=== PATIENT | female | born 2000 | race African-American/Black ===

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

== ENCOUNTER 2019-05-17 23:36 | Emergency (ER) | payer OTHER ==
[~2019-05-17] VITALS: Ht 160 cm; Wt 104.3 kg
[~2019-05-17 23:36] MED LIST changes: +COLACE100 MG PO; +IBUPROFEN 400400 M2 PO
[2019-05-18 00:18] LABS: ABSOLUTE NEUTROPHILS 2.2 thou/uL (1.4-8.2); BASOPHILS 1.2 % (0.0-2.0); HEMATOCRIT 42.2 % (37.0-47.0); HEMOGLOBIN 13.3 gm/dL (12.0-15.0); LYMPHOCYTES 45.7 % (24.0-44.0); MCH 24.4 pg (26.0-34.0); MCHC 31.4 g/dL (28.0-37.0); MCV 77.6 fL (80.0-100.0); MONOCYTES 7.7 % (1.0-8.0); PLATELET COUNT 222 thou/uL (150-400); POLYS 40.4 % (36.0-66.0); RBC 5.44 mil/uL (4.20-5.00); RDW 13.9 % (10.5-14.5); WBC 5.4 thou/uL (4.0-11.0)
[2019-05-18 00:26] LABS: ANION GAP 6 mmol/L (7-16); BUN 9 mg/dL (7-18); CALCIUM 8.4 mg/dL (8.5-10.1); CHLORIDE 105 mmol/L (98-107); CO2 29 mmol/L (21-32); CREATININE 0.7 mg/dL (0.6-1.0); GLUCOSE 86 mg/dL (74-106); POTASSIUM 3.5 mmol/L (3.5-5.1); SODIUM 140 mmol/L (136-145)
[2019-05-18 00:32] LABS: ALBUMIN 3.4 g/dL (3.4-5.0); DIRECT BILIRUBIN < 0.1 mg/dL (<0.1-0.2); LIPASE 47 U/L (73-393); SGOT 17 U/L (15-37); SGPT 20 U/L (30-65); TOTAL BILIRUBIN 0.3 mg/dL (<0.1-1.0); TOTAL PROTEIN 7.3 g/dL (6.4-8.2)
[2019-05-18 00:46] LABS: URINE BILIRUBIN NEGATIVE (Negative); URINE BLOOD NEGATIVE (Negative); URINE CLARITY SL CLOUDY; URINE COLOR YELLOW; URINE GLUCOSE-RANDOM* NEGATIVE (Negative); URINE KETONES NEGATIVE (Negative); URINE NITRITE-REFLEX NEGATIVE (Negative); URINE PROTEIN (DIPSTICK) NEGATIVE (Negative); URINE SPECIFIC GRAVITY 1.025 (1.005-1.035); URINE UROBILINOGEN 0.2 E.U./dl (0.2-1.0)
[2019-05-18 01:12] LABS: URINE LEUKOCYTES-REFLEX 2+ (Negative)
[2019-05-18 01:27] LABS: CASTS None Seen /LPF (None Seen); CRYSTALS None Seen /LPF (None Seen); MUCUS 4-6 Moderate strn/LPF (None Seen); SQUAMOUS 4-10 Moderate /LPF (0-3); URINE RBC 0-2 Rare /HPF (0-2); URINE WBC-REFLEX 6-15 Few /HPF (0-5)
[2019-05-18] MEDS ORDERED: ZOFRAN ODT4 MG PO (02:44)
[2019-05-18] MEDS ORDERED: CEFDINIR300 MG PO (02:44)
[2019-05-18 02:46] VITALS: BP 109/63
== END 2019-05-18 02:59 | disposition home or self-care (01) ==
LOC: ER 23:36
PROVIDERS: Emergency Medicine
DX: J06.9 Acute upper respiratory infection, unspecified (principal); R11.2 Nausea with vomiting, unspecified; R19.7 Diarrhea, unspecified

== ENCOUNTER 2020-07-15 09:02 | Emergency (ER) | payer OTHER ==
[~2020-07-15] VITALS: Ht 160 cm; Wt 80.7 kg
[~2020-07-15 09:02] MED LIST changes: +CEFDINIR300 MG PO; +ZOFRAN ODT4 MG PO
[2020-07-15] MEDS ORDERED: NOHOMEMEDICATIONS (09:39)
[2020-07-15 09:44] LABS: URINE BILIRUBIN NEGATIVE (Negative); URINE BLOOD NEGATIVE (Negative); URINE CLARITY CLEAR; URINE COLOR YELLOW; URINE GLUCOSE-RANDOM* NEGATIVE (Negative); URINE KETONES NEGATIVE (Negative); URINE NITRITE-REFLEX NEGATIVE (Negative); URINE PROTEIN (DIPSTICK) TRACE (Negative); URINE UROBILINOGEN 0.2 E.U./dl (0.2-1.0)
[2020-07-15 09:45] LABS: ABSOLUTE NEUTROPHILS 2.3 thou/uL (1.4-8.2); BASOPHILS 0.4 % (0.0-2.0); EOSINOPHILS 4.5 % (0.0-3.0); HEMATOCRIT 46.3 % (37.0-47.0); LYMPHOCYTES 52.4 % (24.0-44.0); MCHC 32.5 g/dL (28.0-37.0); MCV 80.1 fL (80.0-100.0); PLATELET COUNT 246 thou/uL (150-400); POLYS 37.7 % (36.0-66.0); RBC 5.78 mil/uL (4.20-5.00); RDW 13.4 % (10.5-14.5)
[2020-07-15 09:46] LABS: URINE LEUKOCYTES-REFLEX 2+ (Negative)
[2020-07-15 09:56] LABS: CALCIUM 9.3 mg/dL (8.5-10.1); CREATININE 0.8 mg/dL (0.6-1.0); POTASSIUM 3.6 mmol/L (3.5-5.1)
[2020-07-15 10:01] LABS: ALBUMIN 4.1 g/dL (3.4-5.0); TOTAL BILIRUBIN 0.7 mg/dL (0.2-1.0); TOTAL PROTEIN 8.5 g/dL (6.4-8.2)
[2020-07-15 10:08] LABS: BACTERIA-REFLEX 1-9 Few /HPF (None Seen); CASTS None Seen /LPF (None Seen); CRYSTALS None Seen /LPF (None Seen); MUCUS 0-3 Light strn/LPF (None Seen); SQUAMOUS 0-3 Few /LPF (0-3); URINE RBC None Seen /HPF (NONE SEEN); URINE WBC-REFLEX 0-5 Rare /HPF (0-5)
[2020-07-15 11:10] VITALS: BP 104/55
== END 2020-07-15 11:11 | disposition home or self-care (01) ==
LOC: ER 09:02
PROVIDERS: Emergency Medicine
DX: R11.2 Nausea with vomiting, unspecified (principal); Z20.822 Contact with and (suspected) exposure to COVID-19; R51.9 Headache, unspecified; R10.31 Right lower quadrant pain; J45.909 Unspecified asthma, uncomplicated; Z87.42 Personal history of other diseases of the female genital tract; Z91.041 Radiographic dye allergy status

== ENCOUNTER 2020-08-27 15:48 | Emergency (ER) | payer OTHER ==
[~2020-08-27] VITALS: Ht 160 cm; Wt 78.5 kg
[~2020-08-27 15:48] MED LIST changes: +NOHOMEMEDICATIONS
[2020-08-27] MEDS ORDERED: ZOLOFT 50 MG TA50 MG PO (16:05)
[2020-08-27 16:14] LABS: URINE BILIRUBIN 1+ (Negative); URINE BLOOD NEGATIVE (Negative); URINE CLARITY CLEAR; URINE COLOR YELLOW; URINE GLUCOSE-RANDOM* NEGATIVE (Negative); URINE KETONES 3+ (Negative); URINE NITRITE-REFLEX NEGATIVE (Negative); URINE PROTEIN (DIPSTICK) TRACE (Negative); URINE SPECIFIC GRAVITY >= 1.030 (1.005-1.035); URINE UROBILINOGEN 0.2 E.U./dl (0.2-1.0)
[2020-08-27 16:16] LABS: ICTOTEST (BILI CONFIRMATORY) Positive (Negative); URINE LEUKOCYTES-REFLEX 1+ (Negative)
[2020-08-27 16:17] LABS: ABSOLUTE NEUTROPHILS 2.7 thou/uL (1.4-8.2); BASOPHILS 0.8 % (0.0-2.0); EOSINOPHILS 2.2 % (0.0-3.0); HEMATOCRIT 44.7 % (37.0-47.0); HEMOGLOBIN 14.9 gm/dL (12.0-15.0); LYMPHOCYTES 43.9 % (24.0-44.0); MCH 26.2 pg (26.0-34.0); MCHC 33.2 g/dL (28.0-37.0); MCV 78.7 fL (80.0-100.0); MONOCYTES 4.5 % (1.0-8.0); PLATELET COUNT 191 thou/uL (150-400); POLYS 48.6 % (36.0-66.0); RBC 5.68 mil/uL (4.20-5.00); RDW 12.9 % (10.5-14.5); WBC 5.6 thou/uL (4.0-11.0)
[2020-08-27 16:22] LABS: MUCUS >6 Heavy strn/LPF (None Seen)
[2020-08-27 16:23] LABS: CASTS None Seen /LPF (None Seen); CRYSTALS None Seen /LPF (None Seen); SQUAMOUS 4-10 Moderate /LPF (0-3); URINE RBC None Seen /HPF (NONE SEEN); URINE WBC-REFLEX 6-15 Few /HPF (0-5)
[2020-08-27 16:30] LABS: CALCIUM 9.2 mg/dL (8.5-10.1); CREATININE 0.7 mg/dL (0.6-1.0); POTASSIUM 3.8 mmol/L (3.5-5.1)
[2020-08-27 16:32] LABS: ALBUMIN 4.2 g/dL (3.4-5.0); TOTAL BILIRUBIN 1.3 mg/dL (0.2-1.0); TOTAL PROTEIN 8.5 g/dL (6.4-8.2)
[2020-08-27] MEDS ORDERED: ZOFRAN ODT4 MG PO (16:52)
[2020-08-27 17:35] VITALS: BP 131/74
== END 2020-08-27 17:36 | disposition home or self-care (01) ==
LOC: ER 15:48
PROVIDERS: Emergency Medicine Emergency Medical Services
DX: R11.2 Nausea with vomiting, unspecified (principal); R19.7 Diarrhea, unspecified; R53.1 Weakness; J45.909 Unspecified asthma, uncomplicated; Z91.041 Radiographic dye allergy status

== ENCOUNTER 2020-09-10 02:24 | Emergency (ER) | payer OTHER ==
[~2020-09-10] VITALS: Ht 160 cm; Wt 73.9 kg
[~2020-09-10 02:24] MED LIST changes: +ZOLOFT 50 MG TA50 MG PO
[2020-09-10 03:33] VITALS: BP 132/68
--- NOTE | 2020-09-10 10:59 | EKG ---
[place] [address] [facility] [place] [address] ELECTROCARDIOGRAM REPORT Name: ZACK SPEAR [facility] [id number] Admission: 09/10/20 Attend Phys: Discharge: 09/10/20 Date of : 89 Report #: [id number] [facility] ED Test Date: 2020-09-10 Test Time: 02:42:47 Pat Name: ZACK SPEAR Department: Room: Gender: F Exchange Teller: mary manzano : 2000 Requested By: Oniel Montenegro Order Number: [id number] MD: Ivan Hernandez Measurements Intervals [place] Rate: 73 P: 32 AK: 150 QRS: 52 QRSD: 79 T: 30 QT: 370 QTc: 408 Interpretive Statements Sinus rhythm No previous ECG available for comparison Electronically Signed On 09-10-2020 10:59:04 CDT by Ivan Hernandez [email or web address] <ELECTRONICALLY SIGNED> By: Iavn Hernanedz MD 09/10/20 1059 1 1 Ivan Hernandez MD /EPI
== END 2020-09-10 03:36 | disposition home or self-care (01) ==
LOC: ER 02:24
DX: R07.89 Other chest pain (principal); J45.909 Unspecified asthma, uncomplicated; Z79.899 Other long term (current) drug therapy; Z91.041 Radiographic dye allergy status

== ENCOUNTER 2020-10-19 16:45 | Emergency (ER) | payer OTHER ==
[~2020-10-19] VITALS: Ht 160 cm; Wt 78.5 kg
[2020-10-19 16:47] VITALS: BP 108/61
[2020-10-19] MEDS ORDERED: COLACE100 MG PO (17:14)
[2020-10-19] MEDS ORDERED: PROCTOFOAM-HC 110 GM RECTAL (17:14)
== END 2020-10-19 17:20 | disposition home or self-care (01) ==
LOC: ER 16:45
DX: K64.5 Perianal venous thrombosis (principal); J45.909 Unspecified asthma, uncomplicated; F32.9 Major depressive disorder, single episode, unspecified; F12.90 Cannabis use, unspecified, uncomplicated; Z79.899 Other long term (current) drug therapy; Z91.041 Radiographic dye allergy status

== ENCOUNTER 2020-11-17 09:45 | Emergency (ER) | payer OTHER ==
[~2020-11-17] VITALS: Ht 160 cm; Wt 78.5 kg
[~2020-11-17 09:45] MED LIST changes: +PROCTOFOAM-HC 110 GM RECTAL
[2020-11-17] MEDS ORDERED: CEPHALEXIN500 MG PO (11:41)
[2020-11-17 11:53] VITALS: BP 117/62
== END 2020-11-17 11:53 | disposition home or self-care (01) ==
LOC: ER 09:45
DX: N61.0 Mastitis without abscess (principal); J45.909 Unspecified asthma, uncomplicated; Z88.8 Allergy status to other drugs, medicaments and biological substances

== ENCOUNTER 2020-11-28 20:51 | Emergency (ER) | payer OTHER ==
[~2020-11-28] VITALS: Ht 160 cm; Wt 73.9 kg
[~2020-11-28 20:51] MED LIST changes: +CEPHALEXIN500 MG PO
[2020-11-28] MEDS ORDERED: CEPHALEXIN500 MG PO (21:16)
[2020-11-28] MEDS ORDERED: PROTOPIC OINTME30 GM TOP (21:28)
[2020-11-28 21:51] VITALS: BP 108/63
== END 2020-11-28 21:52 | disposition home or self-care (01) ==
LOC: ER 20:51
DX: L30.9 Dermatitis, unspecified (principal); J45.909 Unspecified asthma, uncomplicated; F32.9 Major depressive disorder, single episode, unspecified; Z79.899 Other long term (current) drug therapy; Z91.041 Radiographic dye allergy status

== ENCOUNTER 2021-01-17 15:43 | Emergency (ER) | payer OTHER ==
[~2021-01-17] VITALS: Ht 160 cm; Wt 69.4 kg
[~2021-01-17 15:43] MED LIST changes: +PROTOPIC OINTME30 GM TOP
[2021-01-17] MEDS ORDERED: ERYTHROMYCIN E3.5 G2 OPHTHALMIC ×2 (16:22→17:15)
[2021-01-17] MEDS ORDERED: TYLENOL 8 HOUR650 MG PO ×2 (16:22→17:15)
[2021-01-17 17:18] VITALS: BP 114/68
== END 2021-01-17 17:18 | disposition home or self-care (01) ==
LOC: ER 15:43
DX: H00.012 Hordeolum externum right lower eyelid (principal); J45.909 Unspecified asthma, uncomplicated; F32.9 Major depressive disorder, single episode, unspecified; F41.9 Anxiety disorder, unspecified; F12.90 Cannabis use, unspecified, uncomplicated; Z91.041 Radiographic dye allergy status

== ENCOUNTER 2021-04-21 07:29 | Emergency (ER) | payer OTHER ==
[~2021-04-21] VITALS: Ht 160 cm; Wt 73.9 kg
[~2021-04-21 07:29] MED LIST changes: +ERYTHROMYCIN E3.5 G2 OPHTHALMIC; +TYLENOL 8 HOUR650 MG PO
[2021-04-21 07:48] LABS: URINE BILIRUBIN NEGATIVE (Negative); URINE BLOOD NEGATIVE (Negative); URINE CLARITY CLEAR; URINE COLOR YELLOW; URINE GLUCOSE-RANDOM* NEGATIVE (Negative); URINE KETONES NEGATIVE (Negative); URINE LEUKOCYTES-REFLEX 1+ (Negative); URINE NITRITE-REFLEX NEGATIVE (Negative); URINE PROTEIN (DIPSTICK) NEGATIVE (Negative); URINE SPECIFIC GRAVITY >= 1.030 (1.005-1.035); URINE UROBILINOGEN 0.2 E.U./dl (0.2-1.0)
[2021-04-21 08:11] LABS: SQUAMOUS 4-10 Moderate /LPF (0-3)
[2021-04-21 08:12] LABS: ABSOLUTE NEUTROPHILS 2.3 thou/uL (1.4-8.2); BASOPHILS 0.6 % (0.0-2.0); EOSINOPHILS 5.6 % (0.0-3.0); HEMATOCRIT 40.8 % (37.0-47.0); LYMPHOCYTES 46.3 % (24.0-44.0); MCH 25.8 pg (26.0-34.0); MCHC 31.9 g/dL (28.0-37.0); MCV 80.6 fL (80.0-100.0); MONOCYTES 4.7 % (1.0-8.0); PLATELET COUNT 182 thou/uL (150-400); POLYS 42.8 % (36.0-66.0); RBC 5.06 mil/uL (4.20-5.00); RDW 14.1 % (10.5-14.5); WBC 5.4 thou/uL (4.0-11.0)
[2021-04-21 08:12] LABS: BACTERIA-REFLEX 1-9 Few /HPF (None Seen); CASTS None Seen /LPF (None Seen); CRYSTALS None Seen /LPF (None Seen); MUCUS 0-3 Light strn/LPF (None Seen); URINE RBC None Seen /HPF (NONE SEEN); URINE WBC-REFLEX 0-5 Rare /HPF (0-5)
[2021-04-21 08:21] LABS: CALCIUM 8.2 mg/dL (8.5-10.1); CREATININE 0.7 mg/dL (0.6-1.0); POTASSIUM 3.4 mmol/L (3.5-5.1)
[2021-04-21 08:27] LABS: ALBUMIN 3.4 g/dL (3.4-5.0); TOTAL BILIRUBIN 0.7 mg/dL (0.2-1.0); TOTAL PROTEIN 6.8 g/dL (6.4-8.2)
[2021-04-21] MEDS ORDERED: ZOFRAN ODT4 MG PO (10:07)
[2021-04-21 10:19] VITALS: BP 122/54
== END 2021-04-21 10:22 | disposition home or self-care (01) ==
LOC: ER 07:29
PROVIDERS: Emergency Medicine
DX: K52.9 Noninfective gastroenteritis and colitis, unspecified (principal); Z20.822 Contact with and (suspected) exposure to COVID-19; J45.909 Unspecified asthma, uncomplicated; Z91.041 Radiographic dye allergy status